=== PATIENT | male | born 1955 | race Caucasian/White ===

== ENCOUNTER → 2020-03-16 | Outpatient (CLI) | payer BC | LOC: CAT 10:15 | PROVIDERS: ATTEND Family Medicine | DX: R91.8 Other nonspecific abnormal finding of lung field (principal); M25.78 Osteophyte, vertebrae; F17.200 Nicotine dependence, unspecified, uncomplicated ==

== ENCOUNTER → 2020-05-26 | Outpatient (CLI) | payer OTHER | LOC: CAT 15:15 | PROVIDERS: ATTEND Family Medicine | DX: Z13.6 Encounter for screening for cardiovascular disorders (principal); E78.00 Pure hypercholesterolemia, unspecified; I25.10 Atherosclerotic heart disease of native coronary artery without angina pectoris ==

== ENCOUNTER → 2020-06-29 | Outpatient (CLI) | payer OTHER, MEDICARE ==
[2020-06-29 11:05] LABS: CREATININE 0.7 mg/dL (0.7-1.3)
== END ==
LOC: MRI 09:10 → LAB 09:48 → MRI 09:48
PROVIDERS: ATTEND Family Medicine
DX: R16.0 Hepatomegaly, not elsewhere classified (principal)

== ENCOUNTER → 2020-07-02 | Outpatient (CLI) | payer OTHER, MEDICARE | LOC: MRI 11:22 | PROVIDERS: ATTEND Family Medicine | DX: N28.1 Cyst of kidney, acquired (principal); K76.89 Other specified diseases of liver; M47.816 Spondylosis without myelopathy or radiculopathy, lumbar region; R16.0 Hepatomegaly, not elsewhere classified ==

== ENCOUNTER → 2020-07-13 | Outpatient (CLI) | payer OTHER, MEDICARE | LOC: ULTRA 08:47 | PROVIDERS: ATTEND Family Medicine | DX: N28.1 Cyst of kidney, acquired (principal); E27.9 Disorder of adrenal gland, unspecified; R16.0 Hepatomegaly, not elsewhere classified ==

== ENCOUNTER → 2021-01-11 | Outpatient (CLI) | payer OTHER, MEDICARE | LOC: CAT 12-29 12:21 | PROVIDERS: ATTEND Surgery | DX: N40.0 Benign prostatic hyperplasia without lower urinary tract symptoms (principal); M43.16 Spondylolisthesis, lumbar region; M47.815 Spondylosis without myelopathy or radiculopathy, thoracolumbar region; M51.36 Other intervertebral disc degeneration, lumbar region; I70.90 Unspecified atherosclerosis; I89.8 Other specified noninfective disorders of lymphatic vessels and lymph nodes ==